=== PATIENT | female | born 1995 | race Caucasian/White ===

== ENCOUNTER → 2016-07-11 | Outpatient (CLI) | payer OTHER ==
[2016-07-11 15:28] LABS: ABSOLUTE EOSINOPHILS # (AUTO) 0.1 10^3/uL (0.0-0.6); ABSOLUTE LYMPHOCYTES (AUTO) 2.1 10^3/uL (0.5-4.7); ABSOLUTE MONOCYTES (AUTO) 0.5 10^3/uL (0.1-1.4); ABSOLUTE NEUT (AUTO) 6.4 10^3/uL (1.7-8.2); BASOPHILS % (AUTO) 0.4 % (0-2); EOSINOPHILS % (AUTO) 0.9 % (0-6); HEMATOCRIT 37.7 % (36.0-47.0); HGB HCT DIFFERENCE 1.3; LYMPHOCYTES % (AUTO) 23.2 % (13-45); MEAN CORPUSCULAR HEMOGLOBIN 29.1 pg (27.0-33.4); MEAN CORPUSCULAR HGB CONC 34.4 g/dL (32.0-36.0); MEAN CORPUSCULAR VOLUME 85 fl (80-97); RED BLOOD COUNT 4.45 10^6/uL (3.72-5.28); RED CELL DISTRIBUTION WIDTH 13.2 % (11.5-14.0); SEGMENTED NEUTROPHILS % (AUTO) 69.5 % (42-78); WHITE BLOOD COUNT 9.2 10^3/uL (4.0-10.5)
[2016-07-11 15:53] LABS: ALANINE AMINOTRANSFERASE 38 U/L (5-35); ALBUMIN 4.9 g/dL (3.7-5.6); ALKALINE PHOSPHATASE 78 U/L (50-135); ANION GAP 16 (5-19); ASPARTATE AMINO TRANSFERASE 20 U/L (5-30); BILIRUBIN,TOTAL 0.5 mg/dL (0.2-1.3); BLOOD UREA NITROGEN 6 mg/dL (7-20); CALCIUM 10.3 mg/dL (8.4-10.2); CARBON DIOXIDE 23 mmol/L (22-30); CHLORIDE 102 mmol/L (98-107); CREATININE RESULT 0.58 mg/dL (0.52-1.25); GLUCOSE 68 mg/dL (75-110); LDH 440 U/L (340-670); POTASSIUM 4.4 mmol/L (3.6-5.0); SODIUM 140.9 mmol/L (137-145); TOTAL PROTEIN 8.1 g/dL (6.3-8.2); URIC ACID 3.9 mg/dL (2.5-6.2)
[2016-07-11 16:16] LABS: RUBELLA IGG ANTIBODY 4.11 IU/mL
[2016-07-11 16:30] LABS: ADD HIVPANEL? NO; HIV (1 AND 2) ANTIBODY NEGATIVE (NEGATIVE)
[2016-07-13 07:43] LABS: HEPATITIS C VIRUS AB <0.1 s/co ratio (0.0-0.9)
== END ==
LOC: OD 14:19
PROVIDERS: ATTEND Specialist
DX: O13.9 Gestational [pregnancy-induced] hypertension without significant proteinuria, unspecified trimester (principal); Z13.29 Encounter for screening for other suspected endocrine disorder; Z13.0 Encounter for screening for diseases of the blood and blood-forming organs and certain disorders involving the immune mechanism; Z11.3 Encounter for screening for infections with a predominantly sexual mode of transmission
CPT/HCPCS: 36415; 80053; 83020; 83615; 84443; 84550; 85025; 86592; 86701; 86762; 86803; 86804; 86850; 86900; 86901; 87340

== ENCOUNTER 2017-01-25 16:23 | Outpatient (CLI) | payer OTHER ==
--- NOTE | 2017-01-25 17:17 | Non Stress Test Report ---
Non Stress Test Datetime Report Generated by CPN: 01/25/2017 17:17 INDICATION Indication for Study: Ordered by Provider Indication for Study (NST) Other: GDM MONITORING Monitor Explained: Monitor Explained; Test Explained; Patient Verbalized Understanding Time on Monitor: 01/25/2017 16:36 Time off Monitor: 01/25/2017 17:09 NST Duration: 33 NST INTERVENTIONS NST Interventions: None Physician Notified NST: Dr Neilsen BABY A: [id number] BABY A Movement : Present Contraction Frequency : 0 FHR Baseline : 140 Accelerations : 15X15 Decelerations : None Variability : Moderate 6-25bpm NST Review: Meets Criteria for Reactive NST NST Review and Verified By : Mahesh Munoz, RN NST Results: Reactive NST REPORT Report Trigger: Send Report
== END 2017-01-25 17:12 | disposition home or self-care (01) ==
LOC: LC 16:23
PROVIDERS: ATTEND Specialist
PROC: 4A1HXCZ Monitoring of Products of Conception, Cardiac Rate, External Approach (ICD-10-PCS; principal; 2017-01-25)
DX: Z34.93 Encounter for supervision of normal pregnancy, unspecified, third trimester (principal)
CPT/HCPCS: 59025

== ENCOUNTER 2017-02-09 20:49 | Outpatient (CLI) | payer OTHER ==
[2017-02-09 21:38] LABS: APPEARANCE,URINE CLEAR; BILIRUBIN,URINE NEGATIVE (NEGATIVE); GLUCOSE, URINE NEGATIVE (NEGATIVE); KETONES,URINE NEGATIVE (NEGATIVE); LEUKOCYTE ESTERASE,URINE NEGATIVE (NEGATIVE); NITRITE,URINE NEGATIVE (NEGATIVE); PROTEIN,URINE NEGATIVE (NEGATIVE); URINE SPECIFIC GRAVITY 1.011; UROBILINOGEN,URINE NEGATIVE mg/dL (<2.0)
[2017-02-09 21:40] LABS: AMNISURE (ROM) NEGATIVE (NEGATIVE)
[2017-02-09 21:59] LABS: URINE BARBITURATES SCREEN NEGATIVE; URINE METHADONE SCREEN NEGATIVE; URINE OPIATES LOW NEGATIVE; URINE PHENCYCLIDINE SCREEN NEGATIVE
--- NOTE | 2017-02-09 22:02 | Non Stress Test Report ---
Non Stress Test Datetime Report Generated by CPN: 02/09/2017 22:01 DEMOGRAPHIC EGA NST: 39.0 EGA NST: 36.6 INDICATION Indication for Study: Ordered by Provider MONITORING Monitor Explained: Monitor Explained; Test Explained; Patient Verbalized Understanding Time on Monitor: 02/09/2017 21:05 Time off Monitor: 02/09/2017 21:53 NST Duration: 48 NST INTERVENTIONS NST Interventions: PO Hydration Physician Notified NST: Espino BABY A: [id number] BABY A Movement : Present Contraction Frequency : irritability FHR Baseline : 120 Accelerations : 15X15 Decelerations : None Variability : Moderate 6-25bpm NST Review: Meets Criteria for Reactive NST NST Review and Verified By : K Katherine RN NST Results: Reactive NST REPORT Report Trigger: Send Report
== END 2017-02-09 22:02 | disposition home or self-care (01) ==
LOC: LC 20:49
PROVIDERS: ATTEND Obstetrics & Gynecology
PROC: 4A1HXCZ Monitoring of Products of Conception, Cardiac Rate, External Approach (ICD-10-PCS; principal; 2017-02-09)
DX: O47.1 False labor at or after 37 completed weeks of gestation (principal); Z3A.39 39 weeks gestation of pregnancy
CPT/HCPCS: 59025; 80307; 81005; 84112

== ENCOUNTER 2017-02-15 15:33 | Outpatient (CLI) | payer OTHER ==
--- NOTE | 2017-02-15 19:39 | Non Stress Test Report ---
Non Stress Test Datetime Report Generated by CPN: 02/15/2017 19:39 DEMOGRAPHIC EGA NST: 39.6 INDICATION Indication for Study: Ordered by Provider Indication for Study (NST) Other: repeat from office MONITORING Monitor Explained: Monitor Explained; Test Explained; Patient Verbalized Understanding Time on Monitor: 02/15/2017 15:44 Time off Monitor: 02/15/2017 16:30 NST Duration: 46 NST INTERVENTIONS NST Interventions: Reposition Patient Physician Notified NST: Dr Rice BABY A: [id number] BABY A Movement : Present Contraction Frequency : irr FHR Baseline : 125 Accelerations : 15X15 Decelerations : None Variability : Moderate 6-25bpm NST Review: Meets Criteria for Reactive NST NST Review and Verified By : D Bellavance RNC NST Results: Reactive NST REPORT Report Trigger: Send Report
== END 2017-02-15 16:32 | disposition home or self-care (01) ==
LOC: LC 15:33
PROVIDERS: ATTEND Student in an Organized Health Care Education/Training Program
PROC: 4A1HXCZ Monitoring of Products of Conception, Cardiac Rate, External Approach (ICD-10-PCS; principal; 2017-02-15)
DX: O47.1 False labor at or after 37 completed weeks of gestation (principal); Z3A.39 39 weeks gestation of pregnancy
CPT/HCPCS: 59025

== ENCOUNTER 2017-02-17 11:30 | Outpatient (CLI) | payer OTHER ==
[2017-02-17 12:44] LABS: APPEARANCE,URINE CLOUDY; BILIRUBIN,URINE NEGATIVE (NEGATIVE); GLUCOSE, URINE NEGATIVE (NEGATIVE); KETONES,URINE NEGATIVE (NEGATIVE); LEUKOCYTE ESTERASE,URINE SMALL (NEGATIVE); NITRITE,URINE NEGATIVE (NEGATIVE); PROTEIN,URINE NEGATIVE (NEGATIVE); URINE SPECIFIC GRAVITY 1.027; UROBILINOGEN,URINE NEGATIVE mg/dL (<2.0)
[2017-02-17 13:11] LABS: URINE BARBITURATES SCREEN NEGATIVE; URINE METHADONE SCREEN NEGATIVE; URINE OPIATES LOW NEGATIVE; URINE PHENCYCLIDINE SCREEN NEGATIVE
[2017-02-17] MEDS ORDERED: HYDROXYZINE PAMOATE 50 MG CAPSULE PO ONE (13:59)
[2017-02-17] MEDS ORDERED: HYDROXYZINE PAMOATE 50 MG CAPSULE ONE (14:05)
== END 2017-02-17 14:11 | disposition home or self-care (01) ==
LOC: LC 11:30
PROVIDERS: ATTEND Specialist
PROC: 4A1HXCZ Monitoring of Products of Conception, Cardiac Rate, External Approach (ICD-10-PCS; principal; 2017-02-17)
DX: O47.1 False labor at or after 37 completed weeks of gestation (principal); Z3A.40 40 weeks gestation of pregnancy
CPT/HCPCS: 59025; 80307; 81005

== ENCOUNTER 2017-02-18 09:17 | Outpatient (CLI) | payer OTHER ==
[2017-02-18 09:59] LABS: APPEARANCE,URINE CLEAR; BILIRUBIN,URINE NEGATIVE (NEGATIVE); GLUCOSE, URINE NEGATIVE (NEGATIVE); KETONES,URINE NEGATIVE (NEGATIVE); LEUKOCYTE ESTERASE,URINE NEGATIVE (NEGATIVE); NITRITE,URINE NEGATIVE (NEGATIVE); PROTEIN,URINE NEGATIVE (NEGATIVE); URINE SPECIFIC GRAVITY 1.001; UROBILINOGEN,URINE NEGATIVE mg/dL (<2.0)
[2017-02-18] MEDS ORDERED: HYDROXYZINE PAMOATE 50 MG CAPSULE PO ONE (10:15)
[2017-02-18] MEDS ORDERED: HYDROXYZINE PAMOATE 50 MG CAPSULE ONE (10:15)
[2017-02-18 10:18] LABS: URINE BARBITURATES SCREEN NEGATIVE; URINE METHADONE SCREEN NEGATIVE; URINE OPIATES LOW NEGATIVE; URINE PHENCYCLIDINE SCREEN NEGATIVE
--- NOTE | 2017-02-18 10:22 | Non Stress Test Report ---
Non Stress Test Datetime Report Generated by CPN: 02/18/2017 10:22 DEMOGRAPHIC EGA NST: 40.2 EGA NST: 40.1 INDICATION Indication for Study: Ordered by Provider Indication for Study: Other Indication for Study (NST) Other: Labor Check VITAL SIGNS Temperature - NST: 98.6 MONITORING Monitor Explained: Monitor Explained; Test Explained; Patient Verbalized Understanding Monitor Explained: Monitor Explained; Test Explained; Patient Verbalized Understanding Time on Monitor: 02/18/2017 09:39 Time on Monitor: 02/17/2017 11:49 Time off Monitor: 02/18/2017 10:21 Time off Monitor: 02/17/2017 12:34 NST Duration: 42 NST Duration: 45 NST INTERVENTIONS NST Interventions: PO Hydration; Reposition Patient NST Interventions: PO Hydration Physician Notified NST: Dr. Espino Physician Notified NST: Carine Muller BABY A: [id number] BABY A Movement : Present Movement : Present Contraction Frequency : rare Contraction Frequency : Irregular FHR Baseline : 135 FHR Baseline : 145 Accelerations : 15X15 Accelerations : 15X15 Decelerations : None Decelerations : None Variability : Moderate 6-25bpm Variability : Moderate 6-25bpm NST Review: Meets Criteria for Reactive NST NST Review: Meets Criteria for Reactive NST NST Review and Verified By : Luisa Madera RN NST Results: Reactive NST Results: Reactive NST REPORT Report Trigger: Send Report
== END 2017-02-18 10:28 | disposition home or self-care (01) ==
LOC: LC 09:17
PROVIDERS: ATTEND Obstetrics & Gynecology
DX: O47.1 False labor at or after 37 completed weeks of gestation (principal); Z3A.40 40 weeks gestation of pregnancy
CPT/HCPCS: 59025; 80307; 81005

== ENCOUNTER 2017-02-19 02:08 | Inpatient (IN) | payer OTHER ==
[2017-02-19 02:50] LABS: AMNISURE (ROM) POSITIVE (NEGATIVE)
[2017-02-19 02:52] LABS: APPEARANCE,URINE CLEAR; BILIRUBIN,URINE NEGATIVE (NEGATIVE); GLUCOSE, URINE NEGATIVE (NEGATIVE); KETONES,URINE NEGATIVE (NEGATIVE); LEUKOCYTE ESTERASE,URINE NEGATIVE (NEGATIVE); NITRITE,URINE NEGATIVE (NEGATIVE); PROTEIN,URINE NEGATIVE (NEGATIVE); UROBILINOGEN,URINE NEGATIVE mg/dL (<2.0)
[2017-02-19 03:09] LABS: URINE BARBITURATES SCREEN NEGATIVE; URINE METHADONE SCREEN NEGATIVE; URINE OPIATES LOW NEGATIVE; URINE PHENCYCLIDINE SCREEN NEGATIVE
[2017-02-19] MEDS ORDERED: RINGERS SOLUTION,LACTATED 1,000 ML IV PRN (03:09)
[2017-02-19] MEDS ORDERED: RINGERS SOLUTION,LACTATED 1,000 ML IV ONE ×2 (03:09→19:30)
[2017-02-19 03:37] LABS: ABSOLUTE BASOPHILS # (AUTO) 0.1 10^3/uL (0.0-0.2); ABSOLUTE EOSINOPHILS # (AUTO) 0.1 10^3/uL (0.0-0.6); ABSOLUTE MONOCYTES (AUTO) 0.9 10^3/uL (0.1-1.4); ABSOLUTE NEUT (AUTO) 8.3 10^3/uL (1.7-8.2); BASOPHILS % (AUTO) 0.6 % (0-2); HEMATOCRIT 33.5 % (36.0-47.0); HEMOGLOBIN 11.7 g/dL (12.0-15.5); HGB HCT DIFFERENCE 1.6; LYMPHOCYTES % (AUTO) 17.8 % (13-45); MEAN CORPUSCULAR HEMOGLOBIN 29.4 pg (27.0-33.4); MEAN CORPUSCULAR HGB CONC 34.9 g/dL (32.0-36.0); MEAN CORPUSCULAR VOLUME 84 fl (80-97); MONOCYTES % (AUTO) 7.7 % (3-13); RED BLOOD COUNT 3.97 10^6/uL (3.72-5.28); RED CELL DISTRIBUTION WIDTH 13.4 % (11.5-14.0); SEGMENTED NEUTROPHILS % (AUTO) 72.9 % (42-78); WHITE BLOOD COUNT 11.4 10^3/uL (4.0-10.5)
[2017-02-19] MEDS ORDERED: OXYTOCIN/NORMAL SALINE 0 UNIT/0 ML RTUINJ ONE (03:45)
[2017-02-19] MEDS ORDERED: OXYTOCIN 10 UNIT/ML VIAL ONE (03:45)
[2017-02-19] MEDS ORDERED: NALOXONE HCL INJ/PF 0.4 MG/1 ML SDV ONE (03:45)
[2017-02-19] MEDS ORDERED: LIDOCAINE 1% INJ-PF (10 MG/ML) 30 ML SDV ONE (03:45)
[2017-02-19] MEDS ORDERED: MISOPROSTOL 0.2 MG TABLET ONE (03:46)
[2017-02-19] MEDS ORDERED: OXYTOCIN/NORMAL SALINE 20 UNIT/1,000 ML RTUINJ ONE (06:45)
[2017-02-19] MEDS ORDERED: NALBUPHINE HCL INJ 10 MG/1 ML AMPULE ONE ×2 (07:06→11:17)
[2017-02-19] MEDS ORDERED: PROMETHAZINE HCL INJ 25 MG/1 ML VIAL ONE ×2 (07:06)
[2017-02-19] MEDS ORDERED: SUCCINYLCHOLINE CHLORIDE INJ 200 MG/10 ML VIAL ONE (10:33)
[2017-02-19] MEDS ORDERED: NALBUPHINE HCL INJ 10 MG/1 ML AMPULE INJ ONE (11:19)
[2017-02-19] MEDS ORDERED: FENTANYL CITRATE INJ/PF 100 MCG/2 ML AMPUL ONE ×3 (13:58→14:15)
[2017-02-19] MEDS ORDERED: MIDAZOLAM 2 MG/2 ML INJ ONE (14:15)
[2017-02-19] MEDS ORDERED: CEFAZOLIN 2 GM/D5W RTU 2 GM/50 ML RTUPB IV ONE (14:27)
[2017-02-19] MEDS ORDERED: PROMETHAZINE HCL INJ 25 MG/1 ML VIAL IV PRN ×2 (14:42)
[2017-02-19] MEDS ORDERED: FENTANYL CITRATE INJ/PF 100 MCG/2 ML AMPUL IV PRN ×3 (14:42)
[2017-02-19] MEDS ORDERED: DIPHENHYDRAMINE HCL 50 MG/ML VIAL IV PRN (14:42)
[2017-02-19] MEDS ORDERED: MORPHINE SULFATE 10 MG/ML INJ IV PRN (14:42)
[2017-02-19] MEDS ORDERED: MEPERIDINE HCL/PF INJ 25 MG/1 ML DISP.SYRIN IV PRN (14:42)
--- NOTE | 2017-02-19 15:38 | OPERATIVE REPORT E ---
Operative Report NAME: SLIM PALOMARES : 1995 AGE: 21Y DATE OF SURGERY: 02/19/2017 ROOM: LR200 PREOPERATIVE DIAGNOSIS: Cervical laceration with hemorrhage. POSTOPERATIVE DIAGNOSIS: Status post repair of cervical laceration and perineal laceration. OPERATIONS: 1. Cervical laceration repair. 2. Perineal laceration repair. SURGEON: AELSIA ROSS M.D. ANESTHESIA: General endotracheal. ESTIMATED BLOOD LOSS: 100 mL intraoperatively but had been approximately 800 mL before surgery. FINDINGS: There was approximately a 1-cm cervical laceration at 5 o'clock on the posterior aspect of the cervix that was a source of the patient's hemorrhage. There was also a second degree perineal laceration and a first degree right labial laceration. DESCRIPTION OF PROCEDURE: After discussing risks, benefits, and alternatives of the procedure and obtaining verbal consent, the patient was taken to the operating room where general anesthesia was achieved. She was positioned in the dorsal lithotomy position, prepped and draped in the usual standard fashion. A Arroyo catheter was placed to keep the bladder drained. A weighted speculum was placed in the vagina and a [place] placed anteriorly. The cervix on either side of the laceration was grasped with sponge sticks. The laceration was repaired with 2-0 Vicryl with a [id number]. Excellent hemostasis was then noted. Attention was then turned to the perineal laceration and the superficial right labial laceration. The perineal laceration was repaired in standard fashion with 2-0 Vicryl and first-degree right labial laceration was repaired with 3-0 Vicryl. The Arroyo catheter was left in place. The patient was taken out of lithotomy position, awakened from anesthesia and taken to recovery in stable condition. All sponge, needle, lap and instrument counts were correct times 2. DICTATING PHYSICIAN: ALESIA ROSS M.D. [id number] PHY#: [id number] ID: [id number] JOB#: [id number] ACCT: [id number] cc:ALESIA ROSS M.D. >
[2017-02-19 15:49] LABS: PROTHROMBIN TIME 13.7 SEC (11.4-15.4)
[2017-02-19 15:50] LABS: PARTIAL THROMBOPLASTIN TIME 27.4 SEC (23.5-35.8)
[2017-02-19 16:03] LABS: HEMATOCRIT 26.8 % (36.0-47.0); HGB HCT DIFFERENCE 1.1; MEAN CORPUSCULAR HEMOGLOBIN 29.6 pg (27.0-33.4); MEAN CORPUSCULAR HGB CONC 34.6 g/dL (32.0-36.0); MEAN CORPUSCULAR VOLUME 86 fl (80-97); RED BLOOD COUNT 3.13 10^6/uL (3.72-5.28); RED CELL DISTRIBUTION WIDTH 13.3 % (11.5-14.0); WHITE BLOOD COUNT 22.3 10^3/uL (4.0-10.5)
[2017-02-19] MEDS ORDERED: ZOLPIDEM TARTRATE 5 MG TABLET PO PRN (16:08)
[2017-02-19] MEDS ORDERED: MEASLES,MUMPS&RUBELLA VACC/PF 0.5 ML VIAL SUBCUT PRN (16:08)
[2017-02-19] MEDS ORDERED: DIBUCAINE 1% OINTMENT 28 GM TP PRN (16:08)
[2017-02-19] MEDS ORDERED: ACETAMINOPHEN WITH CODEINE #3 TABLET PO PRN ×2 (16:08)
[2017-02-19] MEDS ORDERED: BENZOCAINE/MENTHOL AEROSOL SPRAY 56 ML TOP PRN (16:08)
[2017-02-19] MEDS ORDERED: DIPH/PERTUSS(ACELL)/TETANUS VAC/PF 0.5 ML SYR (>=10YO) IM PRN (16:08)
[2017-02-19 16:20] LABS: BAND NEUTROPHILS % (MANUAL) 5 % (3-5); BASOPHILS % (MANUAL) 0 % (0-2); EOSINOPHILS % (MANUAL) 0 % (0-6); LYMPHOCYTES % (MANUAL) 6 % (13-45); TOTAL CELLS COUNTED 100
[2017-02-19 16:21] LABS: HYPOCHROMASIA SLIGHT; TOXIC GRANULATION SLIGHT
[2017-02-19 16:22] LABS: HEMOGLOBIN 9.3 g/dL (12.0-15.5)
--- NOTE | 2017-02-19 16:25 | Delivery Summary ---
Del Sum A-C Datetime Report Generated by CPN: 02/19/2017 16:24 DELIVERY PERSONNEL DELIVERY PERSONNEL: [id number] Delivery Doctor:: Elsy Lofton MD Anesthesiologist:: Tessy Burk MD WASH AND GREASER:: Cherelle Donato CRNA Labor and Delivery Nurse:: Rox Pan RNcurriculum designer Nurse:: Sadaf Madera RN Digital Marketing Analyst:: Patrick Sharp CST Nursery Nurse:: Sadaf Madera RN Ice Skating Instructor/ENTRY LEVEL PROJECT ENGINEER: Jess Michaud, PARALLEL COMPUTING SOFTWARE ENGINEER MATERNAL INFORMATION Delivery Anesthesia: None Medications After Delivery: Pitocin Bolus-Please Comment Estimated Blood Loss (ml): 800 Maternal Complications: Other Other Maternal Complications: cervical laceration Provider Comments: When complete and pushing at + 3 station, repetetive lates noted refractory to oxygen, positioning and ivfs. Vertex KATE. Kiwi offered and applied. Pulled over 1 ctx with no pop offs. Max pressure 550 mmHG. Male infant with apgars 9 and 9. Heavy vag bleeding noted and post cervical lac identified. OR called and pt verbally consented for repair of lacerations in OR-see op note. LABOR SUMMARY EDC: 02/16/2017 00:00 No. Babies in Womb: 1 Attempted: No Labor Anesthesia: IV Sedation LABOR INFORMATION Reason for Induction: Not Applicable Onset of Labor: 02/19/2017 02:10 Complete Dilatation: 02/19/2017 13:07 Oxytocin: Augmentation Group B Beta Strep: Negative Antibiotics # of Doses: 0 Antibiotics Time of Last Dose: N/A Steroids Given: None Reason Steroids Not Administered: Not Applicable MEMBRANES Membranes Rupture Method: Spontaneous Rupture of Membranes: 02/19/2017 02:10 Length of Rupture (hr): 11.55 Amniotic Fluid Color: Light Meconium Amniotic Fluid Amount: Small Amniotic Fluid Odor: Normal STAGES OF LABOR Stage 1 hr: 10 Stage 1 min: 57 Stage 2 hr: 0 Stage 2 min: 36 Stage 3 hr: 0 Stage 3 min: 3 Total Time in Labor hr: 11 Total Time in Labor min: 36 VAGINAL DELIVERY Episiotomy: None Laceration Extension: Second Degree Laceration Type: Perineal Laceration Repair: Yes Laceration Repair Note: in OR due to cervial lac at 5 oclock...perineal lac and 1 st degree labial lac repaired as well Sponge Count Correct: Yes Sharps Count Correct: Yes BABY A INFORMATION Infant Delivery Date/Time: 02/19/2017 13:43 Method of Delivery: Vaginal Born in Route : No : N/A Forceps: N/A Vacuum Extraction: Successful Shoulder Dystocia : No ASSISTED DELIVERY BABY A Indication for Assisted Delivery: Late decelerations Catheter Prior to Procedure: Yes Station Vacuum/Forcep Apply: 3 Position Vacuum/Forcep Apply: Left Occipital Anterior Vacuum Number of Pulls: 3 Vacuum Number of PopOffs: 0 Vacuum Maximum Pressure Obtained: 550 Reduce Pressure btwn Ctx: Yes Vacuum Carbon Paper Interleafer: Kiwi Total Time Vacuum Applied: 80 seconds PRESENTATION/POSITION BABY A Presentation: Cephalic Cephalic Presentation: Vertex Vertex Position: Left Occipital Anterior Breech Presentation: N/A PLACENTA INFORMATION BABY A Placenta Delivery Time : 02/19/2017 13:46 Placenta Method of Delivery: Spontaneous Placenta Status: Delivered SCORES BABY A Heart Rate 1 min: >100 bpm Resp Effort 1 min: Good Cry Reflex Irritability 1 min: Cough or Sneeze or Pulls Away Muscle Tone 1 min: Active Motion Color 1 min: Body [place], Extremities Blue Resuscitation Effort 1 min: Tactile Stimulation SCORE 1 MIN: 9 Heart Rate 5 min: >100 bpm Resp Effort 5 min: Good Cry Reflex Irritability 5 min: Cough or Sneeze or Pulls Away Muscle Tone 5 min: Active Motion Color 5 min: Body [place], Extremities Blue Resuscitation Effort 5 min: Tactile Stimulation SCORE 5 MIN: 9 INFANT INFORMATION BABY A Gestational Age at Delivery: 40.3 Gestational Status: Full Term- 39- 40.6 Weeks Outcome : Liveborn Condition : Stable Sex: Male IDENTIFICATION BABY A Infant Verification Date/Time: 02/19/2017 14:05 ID Band Number: [id number] Mother's Name Verified: Yes RN Verifying Infant: B Baidy RN/ H Beatris RN WEIGHT/LENGTH BABY A Birthweight (gm): 3545 Infant Weight (lb): 7 Infant Weight (oz): 13 Infant Length (in): 20.50 Infant Length (cm): 52.07 CORD INFORMATION BABY A No. Cord Vessels: 3 Nuchal Cord : N/A Cord Blood Taken: Yes-For Eval (Mom's Blood Type - or O+) Infant Suction: Mouth; Nose ASSESSMENT BABY A Complications: Multiple Late Decels Physical Findings at Delivery: Within Normal Limits Respirations: Appears Normal Skin to Skin: No Spot Worker/ALS Called : No Infant Care By: Sadaf Madera RN Transferred To: Remains with Mother BABY B INFORMATION : N/A
--- NOTE | 2017-02-19 17:33 | Admission Physical ---
Datetime Report Generated by CPN: 02/19/2017 17:32 CURRENT ADMISSION Chief Complaint: Suspected Ruptured Membranes Indication for Induction: Not Applicable Admit Plan: Admit to Unit; Initiate Labor Augmentation Protocol ALLERGIES Medication Allergies: No Medication Allergies: No Known Allergies (02/17/2017) Medication Allergies: No Known Allergies (02/09/2017) Medication Allergies: No Known Allergies (01/25/2017) Medication Allergies: No Known Allergies (08/22/2015) Latex: No Latex Allergies Food Allergies: none Environmental Allergies: none OBSTETRICAL HISTORY EDC: 02/16/2017 00:00 : 1 Para: 0 Term: 0 : 0 SAB: 0 IAB: 0 Ectopic: 0 Livin Cesareans: 0 VBACs: 0 Multiple Births: 0 Gestational Diabetes: Yes Rh Sensitization: No Incompetent Cervix: No HARINDER: No Infertility: No ART Treatment: No Uterine Anomaly: No IUGR: No Hx Previous C/S: No Macrosomia: No Hx Loss/Stillborn: No PIH: No Hx : No Placenta Previa/Abruption: No Depression/PP Depression: No PTL/PROM: No Post Hemorrhage: No Current Procedures: Ultrasound; NST Obstetrical History Comments: G1: current, hyperemesis SEE RECORDS Alcohol: No Marijuana : No Cocaine: No Other Illicit Drugs: No Cigarettes: Never Smoker. [id number] MEDICAL HISTORY Diabetes: No Blood Transfusion: No Pulmonary Disease (Asthma, TB): No Breast Disease: No Hypertension: No Sales And Service Officer Surgery: No Heart Disease: No Hosp/Surgery: No Autoimmune Disorder: No Anesthetic Complications: No Kidney Disease: No Abnormal Pap Smear: No Neuro/Epilepsy: No Psychiatric Disorders: No Other Medical Diseases: Yes Hepatitis/Liver Disease: No Significant Family History: No Varicosities/Phlebitis: No Trauma/Violence : No Thyroid Dysfunction: No Medical History Comments: psoriasis INFECTIOUS HISTORY Gonorrhea: No Genital Herpes: No Chlamydia: No Tuberculosis: No Syphilis: No Hepatitis: No HIV/AIDS Exposure: No Rash or Viral Illness: No HPV: No Infectious History Comments: denies PHYSICAL EXAM General: Normal HEENT: Normal Neurologic: Normal Thyroid: Deferred Heart: Normal Lungs: Normal Breast: Deferred Back: Normal Abdomen: Normal Genitourinary Exam: Normal Extremities: Normal DTRs: Normal Pelvic Type: Adequate Vital Signs: Reviewed; Within Normal Limits VAGINAL EXAM Dilatation: 4 Effacement: 80 Station: -2 MEMBRANES Membranes: Ruptured Amniotic Fluid Color: Meconium, Light FETUS A EGA: 40.3 Monitoring: External US FHR- Baseline: 140 Variability: Moderate 6-25bpm Accelerations: 15X15 Decelerations: None FHR Category: Category I PLANS FOR LABOR AND DELIVERY Labor and Delivery: None Pain Management: Medications Feeding Preference: Both Benefit of Breast Feed Discussed: Yes Circumcision: Yes INFORMED CONSENT Signature: with User ID: [email or web address]
[2017-02-19] MEDS: FERROUS SULFATE 325 MG TABLET PO SCH (18:08)
[2017-02-19] MEDS: DOCUSATE SODIUM 100 MG CAPSULE PO SCH (18:08)
[2017-02-19] MEDS: IBUPROFEN 800 MG TABLET PO SCH (21:44)
[2017-02-19 21:56] LABS: HEMATOCRIT 22.6 % (36.0-47.0); HGB HCT DIFFERENCE 1.1; MEAN CORPUSCULAR HEMOGLOBIN 29.7 pg (27.0-33.4); MEAN CORPUSCULAR HGB CONC 34.8 g/dL (32.0-36.0); MEAN CORPUSCULAR VOLUME 85 fl (80-97); RED BLOOD COUNT 2.64 10^6/uL (3.72-5.28); RED CELL DISTRIBUTION WIDTH 13.5 % (11.5-14.0); WHITE BLOOD COUNT 16.5 10^3/uL (4.0-10.5)
[2017-02-19 22:07] LABS: HEMOGLOBIN 7.9 g/dL (12.0-15.5)
[2017-02-20] MEDS ORDERED: LORAZEPAM INJ 2 MG/1 ML VIAL IV ONE (00:15)
[2017-02-20] MEDS: IBUPROFEN 800 MG TABLET PO SCH ×3 (06:00→21:16)
--- NOTE | 2017-02-20 07:11 | EKG REPORT ---
SEVERITY:- BORDERLINE ECG - SINUS TACHYCARDIA BORDERLINE T ABNORMALITIES, ANTERIOR LEADS : Confirmed by: Giovani Falcon MD 20-Feb-2017 07:11:10
[2017-02-20 07:43] LABS: HEMATOCRIT 18.6 % (36.0-47.0); HGB HCT DIFFERENCE 0.6; MEAN CORPUSCULAR HEMOGLOBIN 29.6 pg (27.0-33.4); MEAN CORPUSCULAR HGB CONC 34.6 g/dL (32.0-36.0); MEAN CORPUSCULAR VOLUME 86 fl (80-97); RED BLOOD COUNT 2.17 10^6/uL (3.72-5.28); RED CELL DISTRIBUTION WIDTH 13.7 % (11.5-14.0); WHITE BLOOD COUNT 11.1 10^3/uL (4.0-10.5)
[2017-02-20 07:49] LABS: ALANINE AMINOTRANSFERASE 14 U/L (9-52); ALBUMIN 2.2 g/dL (3.5-5.0); ALKALINE PHOSPHATASE 133 U/L (38-126); ANION GAP 5 (5-19); ASPARTATE AMINO TRANSFERASE 19 U/L (14-36); BILIRUBIN,DIRECT 0.2 mg/dL (0.0-0.4); BILIRUBIN,TOTAL 0.3 mg/dL (0.2-1.3); BLOOD UREA NITROGEN 7 mg/dL (7-20); CALCIUM 8.3 mg/dL (8.4-10.2); CARBON DIOXIDE 22 mmol/L (22-30); CHLORIDE 109 mmol/L (98-107); CREATININE RESULT 0.58 mg/dL (0.52-1.25); GLUCOSE 79 mg/dL (75-110); POTASSIUM 3.9 mmol/L (3.6-5.0); SODIUM 136.3 mmol/L (137-145); TOTAL PROTEIN 4.4 g/dL (6.3-8.2)
[2017-02-20 08:20] LABS: HEMOGLOBIN 6.4 g/dL (12.0-15.5)
[2017-02-20] MEDS: DOCUSATE SODIUM 100 MG CAPSULE PO SCH ×2 (09:43→18:39)
[2017-02-20] MEDS: SENNOSIDES/DOCUSATE 8.6-50 MG 1 EACH TABLET PO SCH (09:43)
[2017-02-20] MEDS: FERROUS SULFATE 325 MG TABLET PO SCH ×2 (09:43→18:39)
[2017-02-20] MEDS: PRENATAL VITAMIN W-O CA NO5/FE FUMARATE/FA CAPSULE PO SCH (09:43)
--- NOTE | 2017-02-20 10:06 | PDOC PROGRESS REPORT ---
Subjective-OB Subjective: Post Delivery Day: 1 21 year old. Denies any needs at this time, feeling much better than yesterday , states lochia is stable, pain well controlled, voiding without difficulty. Physical Exam (OB) Vital Signs: Temp Pulse Resp BP Pulse Ox 98.5 F 124 H 18 127/67 H 100 02/20/17 07:44 02/20/17 07:44 02/20/17 07:44 02/20/17 07:44 02/20/17 07:44 Intake & Output 02/19/17 02/20/17 02/21/17 06:59 06:59 06:59 Intake Total 300 Output Total 1350 500 Balance -1050 -500 Weight 97.95 kg - Lochia Lochia Amount: Scant < 10 ml Lochia Color: Rubra/Red - Abdomen Description: Soft Hernia Present: No Fundal Description: Firm, Midline Fundal Height: u/u - u/2 Objective-Diagnostic Laboratory: 02/20/17 06:59 02/20/17 06:59 02/19/17 02/19/17 02/20/17 15:30 21:30 06:59 WBC 22.3 H 16.5 H RBC 3.13 L 2.64 L Hgb 9.3 L D 7.9 L Hct 26.8 L 22.6 L MCV 86 85 MCH 29.6 29.7 MCHC 34.6 34.8 RDW 13.3 13.5 Plt Count 190 189 Seg Neutrophils % Not Reportable Lymphocytes % Not Reportable Monocytes % Not Reportable Eosinophils % Not Reportable Basophils % Not Reportable Absolute Neutrophils Not Reportable Absolute Lymphocytes Not Reportable Absolute Monocytes Not Reportable Absolute Eosinophils Not Reportable Absolute Basophils Not Reportable Sodium 136.3 L Potassium 3.9 Chloride 109 H Carbon Dioxide 22 Anion Gap 5 BUN 7 Creatinine 0.58 Est GFR ( Amer) > 60 Est GFR (Non-Af Amer) > 60 Glucose 79 Calcium 8.3 L Total Bilirubin 0.3 AST 19 ALT 14 Alkaline Phosphatase 133 H Total Protein 4.4 L Albumin 2.2 L TSH 02/20/17 02/20/17 06:59 06:59 WBC 11.1 H RBC 2.17 L Hgb 6.4 L Hct 18.6 L MCV 86 MCH 29.6 MCHC 34.6 RDW 13.7 Plt Count 165 Seg Neutrophils % Lymphocytes % Monocytes % Eosinophils % Basophils % Absolute Neutrophils Absolute Lymphocytes Absolute Monocytes Absolute Eosinophils Absolute Basophils Sodium Potassium Chloride Carbon Dioxide Anion Gap BUN Creatinine Est GFR ( Amer) Est GFR (Non-Af Amer) Glucose Calcium Total Bilirubin AST ALT Alkaline Phosphatase Total Protein Albumin TSH 2.45 Assessment and Plan(PN) - Assessment and Plan (1) Cervical laceration Qualifiers: Encounter type: initial encounter Qualified Code(s): S37.63XA - Laceration of uterus, initial encounter Is this a current diagnosis for this admission?: Yes Plan: routine pp care (2) Vacuum extraction, delivered, current hospitalization Is this a current diagnosis for this admission?: Yes Plan: routine pp care - Time Spent with Patient Time with patient: Less than 15 minutes Critical Time spent with patient: Less than 15 minutes Medications reviewed and adjusted accordingly: Yes - Disposition Anticipated Discharge: Home Within: within 24 hours
[2017-02-20] MEDS ORDERED: ACETAMINOPHEN 325 MG TABLET PO PRN (16:33)
[2017-02-20] MEDS ORDERED: FUROSEMIDE 20 MG TABLET PO PRN (16:33)
[2017-02-20] MEDS ORDERED: DIPHENHYDRAMINE HCL 25 MG CAPSULE PO PRN (16:33)
[2017-02-20] MEDS ORDERED: NORMAL SALINE 250 ML IV PRN ×2 (16:33)
--- NOTE | 2017-02-20 17:26 | PDOC CONSULTATION ---
Consultation Consult Date: 02/20/17 Attending physician:: BLANCHE SANTORO Consult reason:: tachycardia History of Present Illness Admission Date/PCP: 02/19/17 03:11 ELVIRA SANTORO DO History of Present Illness: SLIM PALOMARES is a 21 year old female with a past medical history significant for anxiety who had a spontaneous vaginal delivery on 02/19/2017 and subsequent cervical laceration requiring OR intervention. Patient was noted on admission to have tachycardia, and patient reports to me that this is baseline for her. She reports that she normally has a baseline heart rate of about 120. She reports that when she was in high school she underwent a stressful event and ended up in the emergency department and was noted at that time to have tachycardia. She reports that her tachycardia improved when she was started on Prozac for her anxiety and her family physician in [place] told her that her tachycardia would also improve if she exercised more. Currently, patient admits to significant anxiety particularly regarding her recent delivery. Patient reported last night being quite dizzy. She denies any shortness of breath, nausea, vomiting, fever, chills. She reports that her lochia is normal. She reports she is no longer passing clots. Patient reports she did not know she was anemic on admission. Past Medical History Skin Medical History: Reports: Psoriasis Psychiatric Medical History: Reports: General Anxiety Disorder Past Surgical History Past Surgical History: Reports: None, Other - Cervical laceration repair Social History Smoking Status: Never Smoker Frequency of Alcohol Use: None Hx Recreational Drug Use: No Hx Prescription Drug Abuse: No - Advance Directive Resuscitation Status: Full Code Surrogate healthcare decision maker:: Family History Family History: Other - Parents both with depression/anxiety Parental Family History Reviewed: Yes Children Family History Reviewed: Yes Sibling(s) Family History Reviewed.: Yes Medication/Allergy Home Medications: Pnv,Calcium 72/Iron/Folic Acid [Pnv Plus Multivit Tab] 1 tab PO DAILY 01/25/17 Allergies/Adverse Reactions: No Known Allergies Allergy (Verified 02/17/17 11:59) Review of Systems Constitutional: PRESENT: fatigue, weight gain. ABSENT: chills, fever(s), headache(s), weight loss Eyes: ABSENT: visual disturbances Ears: ABSENT: hearing changes Cardiovascular: PRESENT: edema. ABSENT: chest pain, dyspnea on exertion, orthropnea, palpitations Respiratory: ABSENT: cough, dyspnea, hemoptysis, sputum Gastrointestinal: ABSENT: abdominal pain, constipation, diarrhea, hematemesis, hematochezia, nausea, vomiting Genitourinary: ABSENT: dysuria, hematuria Musculoskeletal: ABSENT: joint swelling Integumentary: ABSENT: rash, wounds Neurological: ABSENT: abnormal gait, abnormal speech, confusion, dizziness, focal weakness, syncope Psychiatric: PRESENT: anxiety. ABSENT: depression, homidical ideation, suicidal ideation Endocrine: ABSENT: cold intolerance, heat intolerance, polydipsia, polyuria Hematologic/Lymphatic: ABSENT: easy bleeding, easy bruising Physical Exam Vital Signs: Temp Pulse Resp BP Pulse Ox 98.8 F 123 H 16 126/68 H 100 02/20/17 15:38 02/20/17 15:38 02/20/17 15:38 02/20/17 15:38 02/20/17 15:38 Intake & Output 02/19/17 02/20/17 02/21/17 06:59 06:59 06:59 Intake Total 300 Output Total 1350 500 Balance -1050 -500 Weight 97.95 kg General appearance: PRESENT: obese, well-developed, well-nourished Head exam: PRESENT: atraumatic, normocephalic Eye exam: PRESENT: conjunctiva pink, EOMI, PERRLA. ABSENT: scleral icterus Ear exam: PRESENT: normal external ear exam Mouth exam: PRESENT: moist, tongue midline Neck exam: ABSENT: carotid bruit, JVD, lymphadenopathy, thyromegaly, tracheal deviation Respiratory exam: PRESENT: clear to auscultation mary, symmetrical, unlabored. ABSENT: accessory muscle use, prolonged expiratory phas, rales, rhonchi, wheezes Cardiovascular exam: PRESENT: RRR, +S1, +S2, tachycardia. ABSENT: diastolic murmur, rubs, systolic murmur Pulses: PRESENT: normal dorsalis pedis pul Vascular exam: PRESENT: normal capillary refill GI/Abdominal exam: PRESENT: normal bowel sounds, soft. ABSENT: distended, firm , guarding, mass, Desouza's sign, organolmegaly, rebound, rigid, tenderness Rectal exam: PRESENT: deferred Extremities exam: PRESENT: full ROM, +2 edema. ABSENT: calf tenderness, clubbing Neurological exam: PRESENT: alert, awake, oriented to person, oriented to place , oriented to time, oriented to situation, CN II-XII grossly intact. ABSENT: motor sensory deficit Psychiatric exam: PRESENT: depressed, flat affect. ABSENT: homicidal ideation, suicidal ideation Skin exam: PRESENT: dry, intact, warm. ABSENT: cyanosis, rash Results Laboratory Results: 02/20/17 06:59 02/20/17 06:59 02/19/17 02/19/17 02/20/17 03:26 21:30 06:59 WBC 16.5 H RBC 2.64 L Hgb 7.9 L Hct 22.6 L MCV 85 MCH 29.7 MCHC 34.8 RDW 13.5 Plt Count 189 Sodium 136.3 L Potassium 3.9 Chloride 109 H Carbon Dioxide 22 Anion Gap 5 BUN 7 Creatinine 0.58 Est GFR ( Amer) > 60 Est GFR (Non-Af Amer) > 60 Glucose 79 Calcium 8.3 L Total Bilirubin 0.3 AST 19 ALT 14 Alkaline Phosphatase 133 H Total Protein 4.4 L Albumin 2.2 L TSH Blood Type O POSITIVE Antibody Screen NEGATIVE 02/20/17 02/20/17 06:59 06:59 WBC 11.1 H RBC 2.17 L Hgb 6.4 L Hct 18.6 L MCV 86 MCH 29.6 MCHC 34.6 RDW 13.7 Plt Count 165 Sodium Potassium Chloride Carbon Dioxide Anion Gap BUN Creatinine Est GFR ( Amer) Est GFR (Non-Af Amer) Glucose Calcium Total Bilirubin AST ALT Alkaline Phosphatase Total Protein Albumin TSH 2.45 Blood Type Antibody Screen Assessment & Plan - Diagnosis (1) Tachycardia Is this a current diagnosis for this admission?: Yes Plan: Patient with sinus tachycardia. EKG reveals sinus tachycardia. At this time, feel patient's tachycardia is multifactorial most likely represents: #1 acute blood loss anemia secondary to cervical laceration #2 Anxiety #3 Exercise intolerance Patient reports that her anxiety was significantly improved with Ativan last night. Review of patient's vital signs reveals that her heart rate went down between 20 and 30 points after the administration of Ativan. (2) Acute blood loss anemia Is this a current diagnosis for this admission?: Yes Plan: Patient with significant drop in her hemoglobin from 11.7-6.4. Will transfuse 2 units of packed red blood cells. Patient reports that she was dizzy last evening. Will obtain orthostatics. Will also obtain iron studies. Suspect patient is likely iron deficient. 02/19/17 02/19/17 02/19/17 03:26 15:30 21:30 Hgb 11.7 L 9.3 L D 7.9 L Hct 33.5 L 02/20/17 06:59 Hgb 6.4 L Hct 18.6 L (3) Anxiety Is this a current diagnosis for this admission?: Yes Plan: After discussing with patient the extent of her anxiety and history of possible depression, patient is amenable to the idea of resuming her Prozac and not breast-feeding. She reports the Prozac helped her immensely and help decrease her heart rate. At this time I would rather patient restarted an SSRI as opposed to be initiated on benzodiazepines given the potential for abuse. (4) Cervical laceration Qualifiers: Encounter type: subsequent encounter Qualified Code(s): S37.63XD - Laceration of uterus, subsequent encounter Is this a current diagnosis for this admission?: Yes Plan: Deferral issues relating to this to the primary team (5) Vacuum extraction, delivered, current hospitalization Is this a current diagnosis for this admission?: Yes Plan: Defer issues relating to this to the primary team (6) Obesity (BMI 35.0-39.9 without comorbidity) Is this a current diagnosis for this admission?: Yes Plan: Encourage appropriate weight loss - Time Time Spent: 30 to 50 Minutes Medications reviewed and adjusted accordingly: Yes Anticipated discharge: Home Within: within 24 hours
[2017-02-20] MEDS ORDERED: LORAZEPAM 0.5 MG TABLET PO PRN (17:30)
[2017-02-20] MEDS ORDERED: FLUOXETINE HCL 20 MG CAPSULE PO ONE (18:00)
[2017-02-20] MEDS ORDERED: LORAZEPAM 1 MG TABLET PO ONE (18:00)
[2017-02-21 03:52] LABS: ABSOLUTE EOSINOPHILS # (AUTO) 0.2 10^3/uL (0.0-0.6); ABSOLUTE LYMPHOCYTES (AUTO) 2.5 10^3/uL (0.5-4.7); ABSOLUTE MONOCYTES (AUTO) 0.7 10^3/uL (0.1-1.4); ABSOLUTE NEUT (AUTO) 5.4 10^3/uL (1.7-8.2); BASOPHILS % (AUTO) 0.5 % (0-2); EOSINOPHILS % (AUTO) 1.9 % (0-6); HEMATOCRIT 23.6 % (36.0-47.0); HEMOGLOBIN 8.3 g/dL (12.0-15.5); HGB HCT DIFFERENCE 1.3; LYMPHOCYTES % (AUTO) 28.4 % (13-45); MEAN CORPUSCULAR HEMOGLOBIN 30.4 pg (27.0-33.4); MEAN CORPUSCULAR VOLUME 87 fl (80-97); MONOCYTES % (AUTO) 8.1 % (3-13); RED BLOOD COUNT 2.72 10^6/uL (3.72-5.28); RED CELL DISTRIBUTION WIDTH 13.8 % (11.5-14.0); SEGMENTED NEUTROPHILS % (AUTO) 61.1 % (42-78); WHITE BLOOD COUNT 8.8 10^3/uL (4.0-10.5)
[2017-02-21] MEDS: IBUPROFEN 800 MG TABLET PO SCH (06:05)
[2017-02-21] MEDS: FERROUS SULFATE 325 MG TABLET PO SCH (09:52)
[2017-02-21] MEDS: PRENATAL VITAMIN W-O CA NO5/FE FUMARATE/FA CAPSULE PO SCH (09:52)
[2017-02-21] MEDS: SENNOSIDES/DOCUSATE 8.6-50 MG 1 EACH TABLET PO SCH (09:52)
[2017-02-21] MEDS: DOCUSATE SODIUM 100 MG CAPSULE PO SCH (09:53)
[2017-02-21] MEDS ORDERED: (PENDING PHARMACY ID) (Pnv,Calcium 72/Iron/Folic Acid [Pnv Prenatal Plus Multivit Tab] 1 T PO SCH (10:00)
[2017-02-21] MEDS ORDERED: FLUOXETINE HCL 20 MG CAPSULE PO SCH (10:00)
--- NOTE | 2017-02-21 10:10 | PDOC PROGRESS REPORT ---
Subjective-OB Subjective: Post Delivery Day: 21 year old. Denies any needs at this time OOB in chair, feeling better after blood, bottle feeding cause she is going to take meds for anxiety, scant bleeding, voiding Physical Exam (OB) Vital Signs: Temp Pulse Resp BP Pulse Ox 98.3 F 102 H 17 143/89 H 100 02/21/17 07:53 02/21/17 10:02 02/21/17 07:53 02/21/17 07:53 02/21/17 07:53 Intake & Output 02/20/17 02/21/17 02/22/17 06:59 06:59 06:59 Intake Total 300 1360 Output Total 1350 500 Balance -1050 860 - PIH/Pre-Eclampsia DTR's: 2 + Clonus: Negative Headache: Absent Epigastric Pain: No Visual Changes: No - Lochia Lochia Amount: Scant < 10 ml Lochia Color: Rubra/Red - Abdomen Description: Soft, Round Hernia Present: No Fundal Description: Firm, Midline Fundal Height: u/u - u/2 Objective-Diagnostic Laboratory: 02/21/17 03:45 02/20/17 06:59 02/19/17 02/20/17 02/20/17 03:26 06:59 06:59 WBC RBC Hgb Hct MCV MCH MCHC RDW Plt Count Seg Neutrophils % Lymphocytes % Monocytes % Eosinophils % Basophils % Absolute Neutrophils Absolute Lymphocytes Absolute Monocytes Absolute Eosinophils Absolute Basophils Retic Count (auto) 2.08 Absolute Retic 0.046 Iron 48.6 TIBC 349 % Saturation 14 Ferritin 19.80 Vitamin B12 230.0 L Folate 16.00 Blood Type O POSITIVE Antibody Screen NEGATIVE 02/21/17 03:45 WBC 8.8 RBC 2.72 L Hgb 8.3 L Hct 23.6 L MCV 87 MCH 30.4 MCHC 35.0 RDW 13.8 Plt Count 143 L Seg Neutrophils % 61.1 Lymphocytes % 28.4 Monocytes % 8.1 Eosinophils % 1.9 Basophils % 0.5 Absolute Neutrophils 5.4 Absolute Lymphocytes 2.5 Absolute Monocytes 0.7 Absolute Eosinophils 0.2 Absolute Basophils 0.0 Retic Count (auto) Absolute Retic Iron TIBC % Saturation Ferritin Vitamin B12 Folate Blood Type Antibody Screen Assessment and Plan(PN) - Assessment and Plan (1) Acute blood loss anemia Is this a current diagnosis for this admission?: Yes (2) Tachycardia Is this a current diagnosis for this admission?: Yes (3) Anxiety Is this a current diagnosis for this admission?: Yes (4) Obesity (BMI 35.0-39.9 without comorbidity) Is this a current diagnosis for this admission?: Yes (5) Vacuum extraction, delivered, current hospitalization Is this a current diagnosis for this admission?: Yes (6) Cervical laceration Qualifiers: Encounter type: subsequent encounter Qualified Code(s): S37.63XD - Laceration of uterus, subsequent encounter Is this a current diagnosis for this admission?: Yes - Time Spent with Patient Time with patient: Less than 15 minutes Medications reviewed and adjusted accordingly: Yes - Disposition Anticipated Discharge: Home Within: Other - home today
--- NOTE | 2017-02-21 10:15 | PDOC DISCHARGE SUMMARY ---
Final Diagnosis Discharge Date: 02/21/17 - Final Diagnosis (1) Acute blood loss anemia Is this a current diagnosis for this admission?: Yes (2) Tachycardia Is this a current diagnosis for this admission?: Yes (3) Anxiety Is this a current diagnosis for this admission?: Yes (4) Obesity (BMI 35.0-39.9 without comorbidity) Is this a current diagnosis for this admission?: Yes (5) Vacuum extraction, delivered, current hospitalization Is this a current diagnosis for this admission?: Yes (6) Cervical laceration Is this a current diagnosis for this admission?: Yes Discharge Data - Discharge Medication Home Medications: Pnv,Calcium 72/Iron/Folic Acid [Pnv Plus Multivit Tab] 1 tab PO DAILY 01/25/17 Ferrous Sulfate [Feosol 325 mg Tablet] 325 mg PO BID #60 tablet 02/21/17 Fluoxetine HCl [Prozac 20 mg Capsule] 20 mg PO DAILY #30 capsule 02/21/17 Gestational Age: 40.3 Procedures: NST, Ultrasound Intrapartum Procedure(s): Vacuum Extraction Intrapartum Procedure Note: blood transfusion Complication(s): Laceration-Cervical Complication(s) Note: repair in OR, PPH - Data Baby 1 Male at 1 minute: 9 at 5 minutes: 9 Weight: 3.544 kg Home with Mother: Yes Complications: No - Diagnosis Test Laboratory: Temp Pulse Resp BP Pulse Ox 98.3 F 102 H 17 143/89 H 100 02/21/17 07:53 02/21/17 10:02 02/21/17 07:53 02/21/17 07:53 02/21/17 07:53 02/19/17 02/19/17 02/19/17 02:18 03:26 15:30 RBC 3.97 3.13 L Hgb 11.7 L 9.3 L D Hct 33.5 L 26.8 L Urine Opiates Screen NEGATIVE 02/19/17 02/20/17 02/21/17 21:30 06:59 03:45 RBC 2.64 L 2.17 L 2.72 L Hgb 7.9 L 6.4 L 8.3 L Hct 22.6 L 18.6 L 23.6 L Urine Opiates Screen - Discharge information/Instructions Discharge Activity: Activity As Tolerated, No Lifting Over 10 Pounds, No Lifting /Push/Pulling, Pelvic Rest Discharge Diet: As Tolerated, Regular Disposition: HOME, SELF-CARE Follow up with: [facility] in: Weeks
[2017-02-21 10:48] VITALS: BP 137/63
== END 2017-02-21 12:53 | disposition home or self-care (01) | DRG 774 ==
LOC: LC 02:08 → LR 03:11 → 2S 17:31
PROVIDERS: ADMIT Obstetrics & Gynecology; ATTEND Specialist
PROC: 10D07Z6 Extraction of Products of Conception, Vacuum, Via Natural or Artificial Opening (ICD-10-PCS; principal; 2017-02-19)
PROC: 0UQC7ZZ Repair Cervix, Via Natural or Artificial Opening (ICD-10-PCS; 2017-02-19)
PROC: 0KQM0ZZ Repair Perineum Muscle, Open Approach (ICD-10-PCS; 2017-02-19)
PROC: 4A1HXCZ Monitoring of Products of Conception, Cardiac Rate, External Approach (ICD-10-PCS; 2017-02-19)
PROC: 30233N1 Transfusion of Nonautologous Red Blood Cells into Peripheral Vein, Percutaneous Approach (ICD-10-PCS; 2017-02-20)
DX: O71.3 Obstetric laceration of cervix (principal); O72.1 Other immediate postpartum hemorrhage; D62 Acute posthemorrhagic anemia; O99.214 Obesity complicating childbirth; O24.429 Gestational diabetes mellitus in childbirth, unspecified control; Z37.0 Single live birth; O76 Abnormality in fetal heart rate and rhythm complicating labor and delivery; O99.344 Other mental disorders complicating childbirth; O77.0 Labor and delivery complicated by meconium in amniotic fluid; O70.0 First degree perineal laceration during delivery; O99.02 Anemia complicating childbirth; E66.9 Obesity, unspecified; O99.89 Other specified diseases and conditions complicating pregnancy, childbirth and the puerperium; R00.0 Tachycardia, unspecified; F41.1 Generalized anxiety disorder; Z68.35 Body mass index [BMI] 35.0-35.9, adult; Z3A.40 40 weeks gestation of pregnancy; Z79.899 Other long term (current) drug therapy
CPT/HCPCS: 36415; 36430; 80053; 80307; 81005; 82607; 82728; 82746; 83540; 83550; 84112; 84443; 84466; 85025; 85027; 85045; 85610; 85730; 86592; 86850; 86900; 86901; 86920; 88307; 93005; 93010; 940; 94760; J0330; J0690; J2060; J2250; J2300; J2310; J2550; J2590; J3010; J3490; P9016

== ENCOUNTER 2018-02-01 07:38 | Emergency (ER) | payer OTHER ==
[2018-02-01 07:47] VITALS: BP 136/79
--- NOTE | 2018-02-01 08:20 | ER Document Report ---
ED General - General Chief Complaint: Rectal Pain Stated Complaint: RECTAL PROBLEM Time Seen by Provider: 02/01/18 08:15 TRAVEL OUTSIDE OF THE [place] IN LAST 30 DAYS: No - HPI Patient complains to provider of: Bulge in her rectum Notes: Patient noted a lump in her rectum when having a bowel movement this morning. Not sure if it is a hemorrhoid. Denies pain all of symptoms - Related Data Allergies/Adverse Reactions: No Known Allergies Allergy (Verified 02/01/18 07:40) Past Medical History - Social History Smoking Status: Never Smoker Frequency of alcohol use: None Drug Abuse: None Family History: Other - Parents both with depression/anxiety Patient has suicidal ideation: No Patient has homicidal ideation: No Renal/ Medical History: Denies: Hx Peritoneal Dialysis Skin Medical History: Reports Hx Psoriasis Past Surgical History: Reports: Hx Gynecologic Surgery, Other - Cervical laceration repair - Immunizations Hx Diphtheria, Pertussis, Tetanus Vaccination: Yes Physical Exam - Vital signs Vitals: Temp Pulse Resp BP Pulse Ox 98.6 F 95 16 136/79 H 97 02/01/18 07:45 02/01/18 07:45 02/01/18 07:45 02/01/18 07:45 02/01/18 07:45 - Rectal Tenderness: No Hemorrhoids: External Notes: none thrombosies hemmoriods Course - Re-evaluation Re-evalutation: 02/01/18 08:21 Patient is a nonthrombosed external hemorrhoid nonpainful. Recommend sitz baths and other [id number] treatments. - Vital Signs Vital signs: Temp Pulse Resp BP Pulse Ox 98.6 F 95 16 136/79 H 97 02/01/18 07:45 02/01/18 07:45 02/01/18 07:45 02/01/18 07:45 02/01/18 07:45 Discharge - Discharge Clinical Impression: Hemorrhoids Qualifiers: Hemorrhoid type: other Qualified Code(s): K64.8 - Other hemorrhoids Condition: Stable Disposition: HOME, SELF-CARE Instructions: Hemorrhoids ([facility]) Referrals: BLANCHE SANTORO DO [Primary Care Provider] - Follow up as needed
== END 2018-02-01 08:57 | disposition home or self-care (01) ==
LOC: ER 07:38
DX: K64.4 Residual hemorrhoidal skin tags (principal)
CPT/HCPCS: 99283

== ENCOUNTER 2018-05-09 06:07 | Emergency (ER) | payer OTHER ==
[2018-05-09] MEDS ORDERED: NORMAL SALINE 1000 ML 1,000 ML IV ONE ×2 (07:52)
[2018-05-09] MEDS ORDERED: METHYLPREDNISOLONE INJ 125 MG/2 ML SDV IV ONE (07:53)
[2018-05-09] MEDS ORDERED: ACETAMINOPHEN SOLN 325 MG/10.15 ML UDCUP PO ONE (07:53)
[2018-05-09] MEDS ORDERED: IBUPROFEN SUSP 100 MG/5 ML ORAL SYRINGE PO ONE (07:53)
--- NOTE | 2018-05-09 07:55 | ER Document Report ---
HPI - HPI Time Seen by Provider: 05/09/18 07:35 Pain Level: 5 Notes: Patient is an otherwise healthy 22-year-old female who presents to the emergency department with complaints of sore throat. She states she was seen at an urgent care yesterday and diagnosed with mono. She denies any fevers today. She reports that they gave her a prescription for steroids that she has not started taking it. She reports some generalized body aches but denies any specific pain in one location. Patient reports she is able to swallow however it is painful when she does. - EENT EENT: REPORTS: Sore Throat - REPRODUCTIVE Reproductive: REPORTS: : Past Medical History - General Information source: Patient - Social History Smoking Status: Never Smoker Chew tobacco use (# tins/day): No Frequency of alcohol use: None Drug Abuse: None Family History: Other - Parents both with depression/anxiety Patient has suicidal ideation: No Patient has homicidal ideation: No Renal/ Medical History: Denies: Hx Peritoneal Dialysis Skin Medical History: Reports Hx Psoriasis Past Surgical History: Reports: Hx Gynecologic Surgery, Other - Cervical laceration repair - Immunizations Hx Diphtheria, Pertussis, Tetanus Vaccination: Yes Vertical Provider Document - CONSTITUTIONAL Notes: PHYSICAL EXAMINATION: GENERAL: Well-appearing, well-nourished and in no acute distress. HEAD: Atraumatic, normocephalic. EYES: Pupils equal round and reactive to light, extraocular movements intact, conjunctiva are normal. ENT: Nares patent, oropharynx mildly erythematous without exudates. No tonsillar swelling, uvula midline, no evidence of peritonsillar abscess. Moist mucous membranes. NECK: Normal range of motion, supple without lymphadenopathy LUNGS: Breath sounds clear to auscultation bilaterally and equal. No wheezes rales or rhonchi. HEART: Regular rate and rhythm without murmurs ABDOMEN: Soft, nontender, nondistended abdomen. No guarding, no rebound. No masses appreciated. Female : No CVA tenderness. Musculoskeletal: Normal range of motion, no pitting or edema. No cyanosis. NEUROLOGICAL: Cranial nerves grossly intact. Normal speech, normal gait. Normal sensory, motor exams PSYCH: Normal mood, normal affect. SKIN: Warm, Dry, normal turgor, no rashes or lesions noted. - INFECTION CONTROL TRAVEL OUTSIDE OF THE [place] IN LAST 30 DAYS: No Course - Re-evaluation Re-evalutation: Patient was given 2 L of normal saline as well as 125 of Solu-Medrol. Although the patient reported to me that urgent care diagnosed her with mono I did want to repeat a mono as well as rapid strep due to patient's symptoms. Both rapid strep and mono were negative here today. Patient with likely viral pharyngitis. Patient does report that she feels better after IV hydration as well as administration of Tylenol and ibuprofen. Will discharge patient home, encouraged her to start taking the steroids at that urgent care prescribed. Patient was given strict ED return precautions as outlined in her discharge instructions. - Vital Signs Vital signs: Temp Pulse Resp BP Pulse Ox 98.3 F 100 16 123/90 H 100 05/09/18 06:11 05/09/18 06:11 05/09/18 06:11 05/09/18 06:11 05/09/18 06:11 Discharge - Discharge Clinical Impression: Tonsillitis Condition: Stable Disposition: HOME, SELF-CARE Additional Instructions: SORE THROAT: Sore throats may be caused by viruses, bacteria, or fungi. Most are due to a virus, and must get better on their own. Bacterial sore throats, particularly those due to "strep," need treatment with antibiotics. If an antibiotic is prescribed, be sure to take the medication for a full 10 days. Failure to take the antibiotic can result in complications such as rheumatic fever. Sometimes, an injection of antibiotics is given instead of pills or liquid. This single "shot" is equal in effectiveness to the oral medication. To relieve symptoms, take acetaminophen for pain. Sip clear liquids frequently, or eat popsicles or ice chips. Anesthetic sprays or lozenges may help. Make sure the air in the room is not too dry. Avoid using decongestants or antihistamines. Call the doctor if there is no improvement in two days, or if you have difficulty breathing, increasing throat pain, high fever, rash, or frequent vomiting. STEROID MEDICATION: You have been given a medicine of the cortisone/steroid class. This medication is used to control inflammation or allergy. It is usually only given for a short period of time, until the acute process subsides. There are usually no side effects from short-term use of cortisone-like medications. Some persons feel an increased sense of well-being and are not sleepy at bedtime. Long-term use of cortisone medications is best avoided, unless required for a severe condition. If your condition does not remit, or relapses after the course of corticosteroid medication, you should consult your physician. FOLLOW-UP CARE: If you have been referred to a physician for follow-up care, call the physician s office for an appointment as you were instructed or within the next two days. If you experience worsening or a significant change in your symptoms, notify the physician immediately or return to the Emergency Department at any time for re-evaluation. The rapid strep and mono test done in the emergency department today were negative. Culture nurse will call in a prescription for antibiotics for you if there is any abnormality on the throat culture. This will take up to 24 hours. Please start taking the steroids that were prescribed to you by the urgent care yesterday. Take ibuprofen and Tylenol for the pain and swelling. Increase your fluid intake. Get plenty of rest. Return to the emergency department immediately if your having increasing difficulty swallowing, fever unrelieved with Tylenol and/or ibuprofen or any difficulty breathing. Forms: Return to Work
[2018-05-09 11:31] VITALS: BP 112/69
== END 2018-05-09 11:31 | disposition home or self-care (01) ==
LOC: ER 06:07
DX: O99.519 Diseases of the respiratory system complicating pregnancy, unspecified trimester (principal); J03.90 Acute tonsillitis, unspecified; Z3A.00 Weeks of gestation of pregnancy not specified
CPT/HCPCS: 99284; 96361; 96374; 36415; 87070; 87880; 87077; 86308; J2930; J7030; J3490

== ENCOUNTER 2018-10-03 12:08 | Emergency (ER) | payer OTHER ==
[2018-10-03] MEDS ORDERED: ACETAMINOPHEN 325 MG TABLET PO ONE (13:20)
[2018-10-03] MEDS ORDERED: ONDANSETRON 4 MG TAB.RAPDIS PO ONE (13:20)
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
[2018-10-03 14:37] VITALS: BP 135/90
== END 2018-10-03 14:35 | disposition home or self-care (01) ==
LOC: ER 12:08
DX: S06.0X9D Concussion with loss of consciousness of unspecified duration, subsequent encounter (principal); S16.1XXD Strain of muscle, fascia and tendon at neck level, subsequent encounter; R51 Headache; M54.2 Cervicalgia; R41.3 Other amnesia; V87.7XXA Person injured in collision between other specified motor vehicles (traffic), initial encounter
CPT/HCPCS: 99284; 70450; 72125; S0119

== ENCOUNTER 2018-10-04 20:36 | Emergency (ER) | payer OTHER ==
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
--- NOTE | 2018-10-04 22:57 | RADIOLOGY REPORT (SQ) ---
EXAM DESCRIPTION: CLINICAL HISTORY: 22 years Female neck pain COMPARISON: None. TECHNIQUE: Five views FINDINGS: Vertebral body alignment is unremarkable. No acute fractures are identified. Odontoid appears intact. Mild narrowing of the neural foramen on the right at C4-5. IMPRESSION: No acute fracture is identified. CT could be obtained to better evaluate if there is continued clinical concern.
[2018-10-04 23:51] VITALS: BP 104/60
== END 2018-10-05 00:04 | disposition home or self-care (01) ==
LOC: ER 20:36
DX: S09.90XA Unspecified injury of head, initial encounter (principal); W18.2XXA Fall in (into) shower or empty bathtub, initial encounter; F07.81 Postconcussional syndrome; R51 Headache; M62.830 Muscle spasm of back; M54.2 Cervicalgia
CPT/HCPCS: 99283; 72050; L0120

== ENCOUNTER 2018-10-27 02:38 | Emergency (ER) | payer OTHER ==
[2018-10-27] MEDS ORDERED: IPRATROPIUM/ALBUTEROL 0.5-2.5 MG/3 ML AMPUL NEB ONE (06:13)
--- NOTE | 2018-10-27 07:01 | ER Document Report ---
ED General - General Chief Complaint: Chest Pain Stated Complaint: CHEST PRESSURE Time Seen by Provider: 10/27/18 06:03 Mode of Arrival: Ambulatory Information source: Patient, [facility] Records Notes: 22-year-old female with history of anxiety presents with complaint of chest tightness and shortness of breath that started 1 day prior to arrival while at rest. Patient denies cough, recent illness, fever, chills, nausea, vomiting. Patient has had prior similar symptoms with anxiety attacks in the past although she denies any triggering factors. Patient denies tobacco use, recent travel, estrogen use, recent surgery, history of PE, DVT. Patient denies family history of early cardiac . TRAVEL OUTSIDE OF THE [place] IN LAST 30 DAYS: No - HPI Onset: Yesterday Onset/Duration: Sudden Quality of pain: Other - Tightness Severity: Mild Pain Level: 1 Associated symptoms: Shortness of breath, Other - Chest tightness. denies: Body/muscle aches, Chest pain, Nonproductive cough, Productive cough, Fever, Hurts to breath, Leg swelling, Nausea, Vomiting, Rhinnorhea Exacerbated by: Denies Relieved by: Denies Similar symptoms previously: Yes Recently seen / treated by doctor: No - Related Data Allergies/Adverse Reactions: No Known Allergies Allergy (Verified 02/01/18 07:40) Past Medical History - General Information source: Patient - Social History Smoking Status: Never Smoker Chew tobacco use (# tins/day): No Frequency of alcohol use: None Drug Abuse: None Lives with: Family Family History: Reviewed & Not Pertinent, Other - Parents both with depression/anxiety Patient has suicidal ideation: No Patient has homicidal ideation: No Renal/ Medical History: Denies: Hx Peritoneal Dialysis Skin Medical History: Reports Hx Psoriasis Past Surgical History: Reports: Hx Gynecologic Surgery, Other - Cervical laceration repair - Immunizations Hx Diphtheria, Pertussis, Tetanus Vaccination: Yes Review of Systems - Review of Systems Notes: REVIEW OF SYSTEMS: CONSTITUTIONAL : Denies fever, chills, or sweats. Denies recent illness. Denies weight loss, recent hospitalizations. EENT: Denies visual changes, eye pain. Denies sore throat, oral lesions, difficulty swallowing. CARDIOVASCULAR: Denies palpitations. Denies lower extremity edema. RESPIRATORY: Denies cough. Denies wheezing. GASTROINTESTINAL: Denies abdominal pain or distention. Denies nausea, vomiting, or diarrhea. Denies blood in vomitus, stools, or per rectum. Denies black, tarry stools. Denies constipation. GENITOURINARY: Denies difficulty urinating, painful urination, frequency, blood in urine, or vaginal discharge. MUSCULOSKELETAL: Denies back or neck pain or stiffness. Denies joint pain or swelling. SKIN: Denies rash, lesions or sores. HEMATOLOGIC : Denies easy bruising or bleeding. LYMPHATIC: Denies swollen glands. NEUROLOGICAL: Denies confusion or altered mental status. Denies loss of consciousness. Denies dizziness or lightheadedness. Denies headache. Denies weakness or paralysis. Denies problems difficulty with ambulation, slurred speech. Denies sensory loss, numbness, or tingling. Denies seizures. PSYCHIATRIC: + anxiety or stress. Denies depression, suicidal ideation, or h omicidal ideation. Denies visual or auditory hallucinations. Physical Exam - Vital signs Vitals: Temp Pulse Resp BP Pulse Ox 98.2 F 68 20 121/73 99 10/27/18 02:56 10/27/18 02:56 10/27/18 02:56 10/27/18 02:56 10/27/18 02:56 - Notes Notes: PHYSICAL EXAMINATION: GENERAL: Well-appearing, well-nourished and in no acute distress. HEAD: Atraumatic, normocephalic. EYES: Pupils equal round and reactive to light, extraocular movements intact, conjunctiva are normal. ENT: Nares patent, oropharynx clear without exudates. Moist mucous membranes. NECK: Normal range of motion, supple without lymphadenopathy LUNGS: Breath sounds clear to auscultation bilaterally and equal. No wheezes rales or rhonchi. HEART: Regular rate and rhythm without murmurs ABDOMEN: Soft, nontender, nondistended abdomen. No guarding, no rebound. No masses appreciated. Female : deferred Musculoskeletal: Normal range of motion, no pitting or edema. No cyanosis. NEUROLOGICAL: Cranial nerves grossly intact. Normal speech, normal gait. Normal sensory, motor exams PSYCH: Normal mood, normal affect. SKIN: Warm, Dry, normal turgor, no rashes or lesions noted. Course - Re-evaluation Re-evalutation: Chest X-Ray 10/27/18 06:13 IMPRESSION: No acute cardiopulmonary abnormality copyright 2010 [employer]- All Rights Reserved Temp Pulse Resp BP Pulse Ox 97.7 F 78 16 122/82 98 10/27/18 07:56 10/27/18 07:56 10/27/18 07:56 10/27/18 07:56 10/27/18 07:56 22-year-old female with history of anxiety presents with complaint of chest tightness and shortness of breath that started 1 day prior to arrival while at rest. Patient denies cough, recent illness, fever, chills, nausea, vomiting. Patient has had prior similar symptoms with anxiety attacks in the past although she denies any triggering factors. Patient denies tobacco use, recent travel, estrogen use, recent surgery, history of PE, DVT. Patient denies family history of early cardiac . Signs reviewed and within normal limits. Patient does not appear toxic or dehydrated. She is in no respiratory distress. 10/27/18 07:42 Patient reports improvement of her chest tightness after receiving a DuoNeb. EKG shows the patient to be in normal sinus rhythm. Chest x-ray within normal limits. 10/27/18 08:55 Patient is PERC negative. 10/27/18 08:56 Patient was evaluated and treated as appropriate for the patient's presenting symptoms and complaint, with consideration of any critical or life threatening conditions that may be associated with their obtained history and exam as noted above. All results were discussed with patient. Patient provided the opportunity to ask questions, and express concerns. Patient was educated on treatments based on their presumed diagnosis as noted above. At this time we will discharge the patient with return precautions and follow-up recommendations. Verbal discharge instructions given a the bedside. Medication warnings reviewed. Patient is in agreement with this plan and has verbalized understanding of return precautions. After careful consideration I feel that that patient can be safely discharged from the emergency department, they were advised to followup with a primary care physician in 2-3 days. Dictation on this chart was performed using voice recognition software and may result in unintended grammatical, spelling, syntax or errors. - Vital Signs Vital signs: Temp Pulse Resp BP Pulse Ox 97.7 F 78 16 122/82 98 10/27/18 07:56 10/27/18 07:56 10/27/18 07:56 10/27/18 07:56 10/27/18 07:56 - Diagnostic Test Radiology reviewed: Image reviewed, Reports reviewed - EKG Interpretation by Me EKG shows normal: Sinus rhythm Rate: Normal Rhythm: NSR When compared to previous EKG there are: No significant change Discharge - Discharge Clinical Impression: Chest tightness Dyspnea Qualifiers: Dyspnea type: unspecified Qualified Code(s): R06.00 - Dyspnea, unspecified Condition: Good Disposition: HOME, SELF-CARE Instructions: Dyspnea, Nonspecific ([facility]) Additional Instructions: Follow up with your [id number] hours for further care or return to the ED IMMEDIATELY if symptoms worsen or you have any concerns. If you cannot afford to follow up with your primary care physician a list of low cost clinics have been provided at the end of your discharge papers as well. Most prescribed medications have multiple side effects. The safest thing to do is when filling your prescription speak to your pharmacist regarding possible i nteractions with your normal home medications and over the counter medications such as Ibuprofen, Tylenol, Benadryl. If you experience any symptoms that cause you discomfort or concern you should discontinue the medication immediately and return to the emergency room or call your primary care physician. Follow up with your [id number] hours for further care or return to the ED IMMEDIATELY if symptoms worsen or you have any concerns. If you cannot afford to follow up with your primary care physician a list of low cost clinics have been provided at the end of your discharge papers as well. Forms: Elevated Blood Pressure
--- NOTE | 2018-10-27 07:35 | RADIOLOGY REPORT (SQ) ---
EXAM DESCRIPTION: XR CHEST 2 VIEWS COMPLETED DATE/TME: 10/27/2018 06:13 CLINICAL HISTORY: 22 years, Female, sob COMPARISON: None. NUMBER OF VIEWS: Two TECHNIQUE: Two views of the chest LIMITATIONS: None. FINDINGS: The lungs are clear. The heart is normal in size. There is no pneumothorax or pleural effusion. The bones are unremarkable. IMPRESSION: No acute cardiopulmonary abnormality copyright 2010 [employer]- All Rights Reserved
[2018-10-27] MEDS ORDERED: ALBUTEROL SULFATE HFA (90 MCG/PUFF) 8 GM MDI (1 MDI/ER DISP) IH SCH (07:45)
[2018-10-27 08:00] VITALS: BP 122/82
--- NOTE | 2018-10-27 12:31 | EKG REPORT ---
SEVERITY:- OTHERWISE NORMAL ECG - SINUS ARRHYTHMIA, RATE 50-77 : Confirmed by: Lance Serra 27-Oct-2018 12:30:28
== END 2018-10-27 07:59 | disposition home or self-care (01) ==
LOC: ER 02:38
DX: R06.00 Dyspnea, unspecified (principal); R07.9 Chest pain, unspecified; R06.02 Shortness of breath
CPT/HCPCS: 93005; 94640; 99285; 71046; 93010; J3490; J7620

== ENCOUNTER 2018-11-23 22:51 | Emergency (ER) | payer OTHER ==
[2018-11-23 23:00] VITALS: BP 128/81
--- NOTE | 2018-11-24 00:11 | ER Document Report ---
ED Medical Screen (RME) - General Stated Complaint: CHEST PAIN Time Seen by Provider: 11/24/18 00:09 Notes: Patient is a 22-year-old female who presents the emergency department with a chief complaint of chest pain. Her symptoms started her on a half ago. She states she has a tight feeling in her chest. She does feel short of breath. She does have anxiety. She also feels like. She denies any triggers for anxiety tonight. Exam: S1, S2. Lung sounds clear to auscultation. I have greeted and performed a rapid initial assessment of this patient. A comprehensive ED assessment and evaluation of the patient, analysis of test results and completion of medical decision making process will be conducted by an additional ED providers. TRAVEL OUTSIDE OF THE [place] IN LAST 30 DAYS: No - Related Data Allergies/Adverse Reactions: No Known Allergies Allergy (Verified 02/01/18 07:40) Past Medical History Renal/ Medical History: Denies: Hx Peritoneal Dialysis Skin Medical History: Reports Hx Psoriasis Past Surgical History: Reports: Hx Gynecologic Surgery, Other - Cervical laceration repair - Immunizations Hx Diphtheria, Pertussis, Tetanus Vaccination: Yes Physical Exam - Vital signs Vitals: Temp Pulse Resp BP Pulse Ox 98.2 F 95 20 128/81 H 98 11/23/18 22:58 11/23/18 22:58 11/23/18 22:58 11/23/18 22:58 11/23/18 22:58 Course - Vital Signs Vital signs: Temp Pulse Resp BP Pulse Ox 98.2 F 95 20 128/81 H 98 11/23/18 22:58 11/23/18 22:58 11/23/18 22:58 11/23/18 22:58 11/23/18 22:58
[2018-11-24 00:54] LABS: ABSOLUTE BASOPHILS # (AUTO) 0.1 10^3/uL (0.0-0.2); ABSOLUTE LYMPHOCYTES (AUTO) 2.5 10^3/uL (0.5-4.7); ABSOLUTE MONOCYTES (AUTO) 0.5 10^3/uL (0.1-1.4); ABSOLUTE NEUT (AUTO) 3.8 10^3/uL (1.7-8.2); BASOPHILS % (AUTO) 0.9 % (0-2); EOSINOPHILS % (AUTO) 0.7 % (0-6); HEMATOCRIT 37.7 % (36.0-47.0); HEMOGLOBIN 12.6 g/dL (12.0-15.5); LYMPHOCYTES % (AUTO) 35.9 % (13-45); MEAN CORPUSCULAR HEMOGLOBIN 26.7 pg (27.0-33.4); MEAN CORPUSCULAR HGB CONC 33.5 g/dL (32.0-36.0); MEAN CORPUSCULAR VOLUME 80 fl (80-97); MONOCYTES % (AUTO) 7.3 % (3-13); PLATELET COUNT 264 10^3/uL (150-450); RED BLOOD COUNT 4.73 10^6/uL (3.72-5.28); RED CELL DISTRIBUTION WIDTH 14.2 % (11.5-14.0); SEGMENTED NEUTROPHILS % (AUTO) 55.2 % (42-78); TOTAL CELLS COUNTED % (AUTO) 100 %
--- NOTE | 2018-11-24 01:10 | RADIOLOGY REPORT (SQ) ---
EXAM DESCRIPTION: [facility]Lex: XR CHEST 1 VIEW CLINICAL HISTORY: 22 years Female, chest pain COMPARISON: 10/27/2018) FINDINGS: Lungs are clear, with no focal infiltrate, pneumothorax, or pleural effusion. Mediastinum is within normal limits for this positioning. Bony structures are unremarkable. IMPRESSION: 1. No acute pulmonary findings.
[2018-11-24 01:14] LABS: ALANINE AMINOTRANSFERASE 22 U/L (9-52); ALBUMIN 5.1 g/dL (3.5-5.0); ALKALINE PHOSPHATASE 78 U/L (38-126); ANION GAP 12 (5-19); ASPARTATE AMINO TRANSFERASE 23 U/L (14-36); BILIRUBIN,DIRECT 0.3 mg/dL (0.0-0.4); BILIRUBIN,TOTAL 0.7 mg/dL (0.2-1.3); BLOOD UREA NITROGEN 16 mg/dL (7-20); CALCIUM 10.2 mg/dL (8.4-10.2); CARBON DIOXIDE 26 mmol/L (22-30); CHLORIDE 106 mmol/L (98-107); CREATINE KINASE 68 U/L (30-135); GLUCOSE 106 mg/dL (75-110); POTASSIUM 3.7 mmol/L (3.6-5.0); SODIUM 144.3 mmol/L (137-145)
--- NOTE | 2018-11-24 02:57 | ER Document Report ---
ED Cardiac - General Chief Complaint: Chest Pain Stated Complaint: CHEST PAIN Time Seen by Provider: 11/24/18 00:09 Notes: Patient is a 22-year-old female who presents the emergency department with a chief complaint of chest pain. Her symptoms started her on a half ago. She states she has a tight feeling in her chest. She does feel short of breath. She does have anxiety. She also feels like. She denies any triggers for anxiety tonight. Patient states that she used to be on Prozac when she was a teenager and she has been off of it because she had her son 2 years ago. She states she would like to go on it, but has not found a primary care provider to help her get back on the medication. TRAVEL OUTSIDE OF THE [place] IN LAST 30 DAYS: No - Related Data Allergies/Adverse Reactions: No Known Allergies Allergy (Verified 02/01/18 07:40) Past Medical History - Social History Smoking Status: Never Smoker Family History: Reviewed & Not Pertinent, Other - Parents both with depression/anxiety Renal/ Medical History: Denies: Hx Peritoneal Dialysis Skin Medical History: Reports Hx Psoriasis Past Surgical History: Reports: Hx Gynecologic Surgery, Other - Cervical laceration repair - Immunizations Hx Diphtheria, Pertussis, Tetanus Vaccination: Yes Review of Systems - Review of Systems Notes: REVIEW OF SYSTEMS: CONSTITUTIONAL : Denies recent illness. Denies recent unintentional weight loss. Denies fever, chills, or sweats. EENT: Denies eye, ear, throat, or mouth pain, discharge, or symptoms. Denies nasal or sinus congestion. CARDIOVASCULAR: See HPI RESPIRATORY: See HPI GASTROINTESTINAL: Denies nausea, vomiting, and diarrhea. Denies abdominal pain. Denies constipation. GENITOURINARY: Denies difficulty urinating, burning, blood in urine, urgency or frequency. MUSCULOSKELETAL: Denies neck and back pain. Denies joint pain or swelling. SKIN: Denies rash, itchiness, or lesions HEMATOLOGIC : Denies easy bruising or bleeding. LYMPHATIC: Denies swollen, painful, enlarged glands. NEUROLOGICAL: Denies no numbness or tingling denies weakness. Denies headache. Denies altered mental status. Denies alteration in speech. PSYCHIATRIC: See HPI All other systems reviewed and negative. Physical Exam - Vital signs Vitals: Temp Pulse Resp BP Pulse Ox 98.2 F 95 20 128/81 H 98 11/23/18 22:58 11/23/18 22:58 11/23/18 22:58 11/23/18 22:58 11/23/18 22:58 - Notes Notes: PHYSICAL EXAMINATION: GENERAL: Appears well, healthy, well-nourished, no acute distress. HEAD: Normocephalic, atraumatic. EYES: PERRL, conjunctiva normal, all extraocular movements intact, sclera nonicteric ENT: Moist mucous membranes. NECK: Supple, no noticeable swelling, redness, rash. Normal range of motion. LUNGS: Equal breath sounds bilaterally and clear to auscultation. No wheezes rales or rhonchi. CARDIOVASCULAR: S1-S2, regular rate, regular rhythm. Radial pulses 2+, normal. ABDOMEN: Normoactive bowel sounds. Soft, nontender, no guarding, no rebound tenderness, and no masses palpated. EXTREMITIES: Normal strength and range of motion, no pitting or edema. No cyanosis. NEUROLOGICAL: Moves all extremities upon command. Strength 5/5 in all extremities. PSYCH: Normal mood, normal affect. SKIN: Warm, dry. No rash, lesions, ulcerations noted. Normal skin turgor. Course - Re-evaluation Re-evalutation: 11/24/18 02:59 Patient's labs, EKG, chest x-ray, troponin, and other diagnostic studies are normal at this time. I have advised her that she needs to get back on her anxiety medication because she has now been seen twice here in the emergency department for chest pain. I suspect her chest pain is due to her anxiety. She cannot identify the triggers of her chest pain. At this time, she is stable for discharge. Follow-up precautions were given. Verbal discharge instructions were given to the patient. They verbalized understanding. They are stable for discharge. - Vital Signs Vital signs: Temp Pulse Resp BP Pulse Ox 98.2 F 95 20 128/81 H 98 11/23/18 22:58 11/23/18 22:58 11/23/18 22:58 11/23/18 22:58 11/23/18 22:58 - Laboratory Result Diagrams: 11/24/18 00:30 11/24/18 00:30 Laboratory results interpreted by me: 11/24/18 11/24/18 00:30 00:30 MCH 26.7 L RDW 14.2 H Total Protein 9.0 H Albumin 5.1 H - EKG Interpretation by Me Additional EKG results interpreted by me: 11/24/18 02:57 Sinus rhythm. Rate 96. NJ 156; QRS 80; QT 348; QTc 440. No ST elevations or depressions noted. No significant change from previous EKG dated on October 07, 2018. Discharge - Discharge Clinical Impression: Anxiety Chest pain Qualifiers: Chest pain type: other chest pain Qualified Code(s): R07.89 - Other chest pain Condition: Stable Disposition: HOME, SELF-CARE Additional Instructions: You are seen today in the emergency department for chest pain. Your x-ray, EKG, and labs are all normal. Please follow-up with a primary care provider regards to this visit. Please use the inhaler have at home needed for any shortness of breath.
--- NOTE | 2018-11-24 12:10 | EKG REPORT ---
SEVERITY:- NORMAL ECG - SINUS RHYTHM : Confirmed by: Sana Myrick MD 24-Nov-2018 12:09:33
== END 2018-11-24 03:16 | disposition home or self-care (01) ==
LOC: ER 22:51
DX: F41.9 Anxiety disorder, unspecified (principal); R07.89 Other chest pain; R06.02 Shortness of breath; Z81.8 Family history of other mental and behavioral disorders
CPT/HCPCS: 36415; 71045; 80053; 82550; 82553; 85025; 93005; 93010; 99285